=== PATIENT | female | born 1960 | race Caucasian/White ===

== ENCOUNTER → 2019-02-13 | Outpatient (CLI) | payer MEDICARE ==
[~2019-02-13] MED LIST: REGADENOSON 0.4 MG/5 ML SYRINGE ONE
== END | disposition home or self-care (01) ==
LOC: CFH 06:43
PROVIDERS: ATTEND Internal Medicine Cardiovascular Disease
DX: I48.91 Unspecified atrial fibrillation (principal); R94.31 Abnormal electrocardiogram [ECG] [EKG]; I10 Essential (primary) hypertension; Z82.49 Family history of ischemic heart disease and other diseases of the circulatory system
CPT/HCPCS: 78452; 93017; 93306; A9502; J2785

== ENCOUNTER 2019-11-18 20:09 | Inpatient (IN) | payer MEDICARE ==
[~2019-11-18] VITALS: Ht 162.6 cm; Wt 94.6 kg
[2019-11-18] MEDS ORDERED: PANTOPRAZOLE 80 MG in SODIUM CHLORIDE 0.9% 100 ML IV SCH (20:53)
[2019-11-18] MEDS ORDERED: PLEASE ENTER ALLERGIES MC SCH (21:30)
[2019-11-18] MEDS ORDERED: LORazepam 1MG TABLET PO PRN ×4 (22:00)
[2019-11-18] MEDS ORDERED: ONDANSETRON ODT 4 MG PO PRN (22:00)
[2019-11-18] MEDS ORDERED: hydrALAzine 20 MG/ML, 1ML IVPush PRN (22:00)
[2019-11-18] MEDS ORDERED: morphine SULFATE 10 MG/ML, 1ML IVPush PRN (22:00)
[2019-11-18] MEDS ORDERED: PROMETHAZINE 25 MG/ML, 1ML IM PRN (22:00)
[2019-11-18] MEDS ORDERED: LORazepam 2 MG/ML, 1ML IV PRN ×5 (22:00)
[2019-11-18] MEDS ORDERED: ONDANSETRON 2MG/ML, 2ML IVPush PRN (22:00)
[2019-11-18] MEDS ORDERED: LORazepam 0.5MG TABLET PO PRN (22:00)
[2019-11-18] MEDS ORDERED: ACETAMINOPHEN 325 MG TABLET PO PRN (22:00)
[2019-11-18 22:54] VITALS: BP 120/60
[2019-11-18 23:28] LABS: FREE T4 (FREE THYROXINE) 1.19 ng/dL (0.76-1.46)
[2019-11-18] MEDS: OXYcodone IR 5MG TABLET PO PRN (23:50)
[2019-11-19] MEDS ORDERED: LOSA100T14 PO (01:11)
[2019-11-19] MEDS ORDERED: OXYC5CAP2 PO (01:11)
[2019-11-19] MEDS ORDERED: TRAM50TA2 PO (01:11)
[2019-11-19] MEDS ORDERED: APIX5TAB PO (01:11)
[2019-11-19] MEDS ORDERED: AMLO-150 PO (01:11)
[2019-11-19] MEDS ORDERED: VENL75TA PO (01:11)
[2019-11-19] MEDS ORDERED: HYDR50TA99 PO (01:11)
[2019-11-19] MEDS ORDERED: CARV12.52 PO (01:50)
[2019-11-19 03:38] VITALS: BP 105/63
[2019-11-19 03:52] LABS: CHLORIDE 107 mmol/L (98-107)
[2019-11-19 04:01] LABS: ALANINE AMINOTRANSFERASE 29 U/L (12-78); ALBUMIN 2.9 g/dL (3.4-5.0); ALKALINE PHOSPHATASE 94 U/L (45-117); ANION GAP 7 mmol/L (5-15); BILIRUBIN,TOTAL 0.4 mg/dL (0.2-1.0); CALCIUM 9.6 mg/dL (8.5-10.1); CHOL/HDL RATIO 2.3; CHOLESTEROL, TOTAL 159 mg/dL (140-239); CREATININE 2.34 mg/dL (0.55-1.02); HDL CHOL % 44 % (28-40); HDL CHOLESTEROL (DIRECT) 70 mg/dL (40-60); LDL CHOLESTEROL,CALCULATED 75 mg/dL (54-169); LDL/HDL RATIO 1.1 (0.5-3.0); TOTAL PROTEIN 6.3 g/dL (6.4-8.2); TRIGLYCERIDES 68 mg/dL (50-200); VLDL CHOLESTEROL 14 mg/dL (0-25)
[2019-11-19] MEDS ORDERED: ACET-76 PO (05:58)
[2019-11-19] MEDS: OXYcodone IR 5MG TABLET PO PRN ×5 (06:35→21:50)
[2019-11-19 07:04] VITALS: BP 123/83
[2019-11-19] MEDS ORDERED: hydrOXyzine 50MG TABLET PO PRN (08:30)
[2019-11-19] MEDS ORDERED: PHARMACY MAY ADJ FOR RENAL FX MC PRN (08:30)
[2019-11-19] MEDS: VENLAFAXINE 75MG TABLET PO SCH (09:08)
[2019-11-19] MEDS: PANTOPRAZOLE 80 MG in SODIUM CHLORIDE 0.9% 100 ML IV SCH ×2 (09:08→20:57)
[2019-11-19] MEDS: POTASSIUM CHLORIDE 20 MEQ, MAGNESIUM SULFATE 2 GM, THIAMINE 200 MG, MVI ADULT 10 ML, FO... IV SCH ×3 (10:16→20:58)
[2019-11-19] MEDS: SODIUM CHLORIDE 0.9% 1,000 ML IV SCH ×2 (10:49)
[2019-11-19 12:27] VITALS: BP 104/66
[2019-11-19] MEDS ORDERED: PROPOFOL 10 MG/ML, 20ML ONE (13:46)
[2019-11-19] MEDS ORDERED: ONDANSETRON 2MG/ML, 2ML IV PRN (14:00)
[2019-11-19] MEDS ORDERED: ALBUTEROL/IPRATROPIUM 2.5MG/0.5MG, 3 ML NPPB PRN (14:00)
[2019-11-19] MEDS ORDERED: FENTANYL PF 100 MCG/2ML IV PRN (14:00)
[2019-11-19] MEDS ORDERED: LORazepam 2 MG/ML, 1ML IVPush PRN (14:00)
[2019-11-19] MEDS ORDERED: LABETALOL 5MG/ML, 20ML IV PRN (14:00)
[2019-11-19] MEDS ORDERED: OXYcodone 5 MG/5 ML ORAL.SOL UDC PO PRN (14:00)
[2019-11-19] MEDS ORDERED: hydrALAzine 20 MG/ML, 1ML IV PRN (14:00)
[2019-11-19] MEDS: SUCRALFATE 1 GM/10 ML UDC PO SCH ×2 (16:16→20:56)
[2019-11-19 19:00] VITALS: BP 118/80
[2019-11-20] VITALS: BP 108/72
[2019-11-20] MEDS: OXYcodone IR 5MG TABLET PO PRN ×5 (01:49→23:45)
[2019-11-20 05:45] LABS: BASOPHILS # (AUTO) 0.04 x10^3/uL (0-0.1); BASOPHILS % (AUTO) 1 % (0-1); EOSINOPHILS # (AUTO) 0.07 x10^3/uL (0-0.4); EOSINOPHILS % (AUTO) 2 % (1-7); LYMPHOCYTES % (AUTO) 36 % (22-44); MD NO; MEAN CORPUSCULAR HEMOGLOBIN 26.4 pg (27.0-34.8); MEAN CORPUSCULAR HGB CONC 32.1 g/dL (32.4-35.8); MEAN PLATELET VOLUME 7.2 fL (7.4-10.4); MONOCYTES # (AUTO) 0.69 x10^3/uL (0.2-0.8); MONOCYTES % (AUTO) 17 % (2-9); NEUTROPHILS # (AUTO) 1.84 x10^3/uL (1.8-6.8); NEUTROPHILS % (AUTO) 45 % (42-75); PLATELET COUNT 246 x10^3/uL (130-400); RED BLOOD COUNT 3.63 x10^6/uL (3.82-5.3); RED CELL DISTRIBUTION WIDTH 21.3 % (9.6-15.2)
[2019-11-20 05:52] LABS: ALANINE AMINOTRANSFERASE 28 U/L (12-78); ALBUMIN 2.7 g/dL (3.4-5.0); ANION GAP 5 mmol/L (5-15); CALCIUM 8.7 mg/dL (8.5-10.1); CHLORIDE 113 mmol/L (98-107); CREATININE 1.15 mg/dL (0.55-1.02)
[2019-11-20 05:54] LABS: ALKALINE PHOSPHATASE 87 U/L (45-117); BILIRUBIN,TOTAL 0.2 mg/dL (0.2-1.0); TOTAL PROTEIN 5.9 g/dL (6.4-8.2)
[2019-11-20] MEDS: POTASSIUM CHLORIDE 20 MEQ, MAGNESIUM SULFATE 2 GM, THIAMINE 200 MG, MVI ADULT 10 ML, FO... IV SCH (06:48)
[2019-11-20] MEDS: SUCRALFATE 1 GM/10 ML UDC PO SCH ×4 (07:41→21:26)
[2019-11-20 07:53] LABS: INTERNATIONAL NORMALIZED RATIO 0.98 (0.93-1.1); PROTHROMBIN TIME 10.3 Seconds (9.6-11.5)
[2019-11-20 08:10] VITALS: BP 137/81
[2019-11-20] MEDS: PANTOPRAZOLE 80 MG in SODIUM CHLORIDE 0.9% 100 ML IV SCH (08:26)
[2019-11-20] MEDS: VENLAFAXINE 75MG TABLET PO SCH (08:26)
[2019-11-20] MEDS: PANTOPRAZOLE 40MG TABLET PO SCH ×2 (11:16→21:26)
[2019-11-20 14:00] VITALS: BP 124/88
[2019-11-20 15:45] LABS: MICROSCOPIC INDICATED
[2019-11-20] MEDS ORDERED: CHLORDIAZEPOXIDE 25 MG CAPSULE PO ONE (18:00)
[2019-11-20 19:46] VITALS: BP 124/84
[2019-11-20] MEDS ORDERED: POTASSIUM CHLORIDE 20 MEQ, MAGNESIUM SULFATE 2 GM, THIAMINE 200 MG, MVI ADULT 10 ML, FO... IV SCH (22:30)
[2019-11-21 01:46] VITALS: BP 125/85
[2019-11-21] MEDS: OXYcodone IR 5MG TABLET PO PRN ×4 (04:08→21:32)
[2019-11-21 05:47] LABS: BASOPHILS # (AUTO) 0.02 x10^3/uL (0-0.1); BASOPHILS % (AUTO) 0 % (0-1); EOSINOPHILS # (AUTO) 0.07 x10^3/uL (0-0.4); EOSINOPHILS % (AUTO) 2 % (1-7); LYMPHOCYTES # (AUTO) 1.58 x10^3/uL (1-3.4); LYMPHOCYTES % (AUTO) 37 % (22-44); MD NO; MEAN CORPUSCULAR HEMOGLOBIN 26.3 pg (27.0-34.8); MEAN CORPUSCULAR HGB CONC 31.9 g/dL (32.4-35.8); MEAN CORPUSCULAR VOLUME 82.4 fL (80-100); MEAN PLATELET VOLUME 7.4 fL (7.4-10.4); MONOCYTES # (AUTO) 0.82 x10^3/uL (0.2-0.8); MONOCYTES % (AUTO) 19 % (2-9); NEUTROPHILS # (AUTO) 1.79 x10^3/uL (1.8-6.8); NEUTROPHILS % (AUTO) 42 % (42-75); PLATELET COUNT 256 x10^3/uL (130-400); RED BLOOD COUNT 3.53 x10^6/uL (3.82-5.3); RED CELL DISTRIBUTION WIDTH 20.9 % (9.6-15.2)
[2019-11-21 06:00] LABS: ANION GAP 4 mmol/L (5-15); CALCIUM 9.1 mg/dL (8.5-10.1); CHLORIDE 115 mmol/L (98-107)
[2019-11-21 06:01] LABS: ALANINE AMINOTRANSFERASE 27 U/L (12-78); ALBUMIN 2.7 g/dL (3.4-5.0)
[2019-11-21 06:03] LABS: ALKALINE PHOSPHATASE 83 U/L (45-117); BILIRUBIN,TOTAL 0.3 mg/dL (0.2-1.0); TOTAL PROTEIN 6.1 g/dL (6.4-8.2)
[2019-11-21 07:10] VITALS: BP 109/75
[2019-11-21] MEDS: VENLAFAXINE 75MG TABLET PO SCH (07:51)
[2019-11-21] MEDS: SUCRALFATE 1 GM/10 ML UDC PO SCH ×4 (07:51→21:32)
[2019-11-21] MEDS: PANTOPRAZOLE 40MG TABLET PO SCH ×2 (07:52→21:32)
[2019-11-21 12:57] VITALS: BP 129/86
[2019-11-21] MEDS ORDERED: FOLI-17 PO (15:18)
[2019-11-21] MEDS ORDERED: PANT40TA5 PO (15:18)
[2019-11-21] MEDS ORDERED: SUCR1ORA5 PO (15:18)
[2019-11-21] MEDS ORDERED: MULT1TAB60 PO (15:18)
[2019-11-21] MEDS ORDERED: THIA100T67 PO (15:18)
[2019-11-21 19:10] VITALS: BP 118/71
[2019-11-22 00:43] VITALS: BP 146/90
[2019-11-22] MEDS: OXYcodone IR 5MG TABLET PO PRN ×4 (01:49→19:51)
[2019-11-22 07:36] VITALS: BP 140/87
[2019-11-22] MEDS: VENLAFAXINE 75MG TABLET PO SCH (07:57)
[2019-11-22] MEDS: MULTIVITAMIN 1 TABLET PO SCH (07:57)
[2019-11-22] MEDS: THIAMINE 100MG TABLET PO SCH (07:57)
[2019-11-22] MEDS: FOLIC ACID 1 MG TABLET PO SCH (07:57)
[2019-11-22] MEDS: SUCRALFATE 1 GM/10 ML UDC PO SCH ×4 (07:57→19:50)
[2019-11-22] MEDS: PANTOPRAZOLE 40MG TABLET PO SCH ×2 (07:57→19:51)
[2019-11-22 12:20] VITALS: BP 150/97
[2019-11-22 18:58] VITALS: BP 144/93
[2019-11-23 00:26] VITALS: BP 150/97
[2019-11-23] MEDS: OXYcodone IR 5MG TABLET PO PRN ×6 (00:51→22:55)
[2019-11-23] MEDS: DOCUSATE 100 MG CAPSULE PO PRN ×2 (04:54→17:15)
[2019-11-23 07:41] VITALS: BP 166/109
[2019-11-23] MEDS: PANTOPRAZOLE 40MG TABLET PO SCH ×2 (08:54→20:02)
[2019-11-23] MEDS: SUCRALFATE 1 GM/10 ML UDC PO SCH ×4 (08:54→20:02)
[2019-11-23] MEDS: MULTIVITAMIN 1 TABLET PO SCH (08:54)
[2019-11-23] MEDS: FOLIC ACID 1 MG TABLET PO SCH (08:55)
[2019-11-23] MEDS: THIAMINE 100MG TABLET PO SCH (08:55)
[2019-11-23] MEDS: VENLAFAXINE 75MG TABLET PO SCH (08:55)
[2019-11-23 13:49] VITALS: BP 142/81
[2019-11-23] MEDS: CARVEDILOL 12.5 MG TABLET PO SCH (18:39)
[2019-11-23 18:52] VITALS: BP 147/92
[2019-11-24 00:19] VITALS: BP 141/88
[2019-11-24] MEDS: OXYcodone IR 5MG TABLET PO PRN ×4 (02:55→16:17)
[2019-11-24] MEDS: CARVEDILOL 12.5 MG TABLET PO SCH ×2 (05:38→17:00)
[2019-11-24] MEDS: PANTOPRAZOLE 40MG TABLET PO SCH (08:06)
[2019-11-24] MEDS: VENLAFAXINE 75MG TABLET PO SCH (08:06)
[2019-11-24] MEDS: FOLIC ACID 1 MG TABLET PO SCH (08:06)
[2019-11-24] MEDS: SUCRALFATE 1 GM/10 ML UDC PO SCH ×3 (08:06→16:16)
[2019-11-24] MEDS: THIAMINE 100MG TABLET PO SCH (08:06)
[2019-11-24] MEDS: MULTIVITAMIN 1 TABLET PO SCH (08:06)
[2019-11-24 08:16] VITALS: BP 153/99
[2019-11-24 13:49] VITALS: BP 138/82
[2019-11-24] MEDS ORDERED: CARV12.52 PO (16:49)
[2019-11-25 02:10] VITALS: BP 123/68
== END 2019-11-24 18:34 | DRG 377 ==
LOC: ED 21:18 → EDIP 21:33 → 4WST 22:50
PROVIDERS: ADMIT Internal Medicine; ATTEND Family Medicine
PROC: 0DB68ZX Excision of Stomach, Via Natural or Artificial Opening Endoscopic, Diagnostic (ICD-10-PCS; principal; 2019-11-19 12:45)
DX: K25.4 Chronic or unspecified gastric ulcer with hemorrhage (principal); N17.0 Acute kidney failure with tubular necrosis; K85.80 Other acute pancreatitis without necrosis or infection; K86.0 Alcohol-induced chronic pancreatitis; D68.59 Other primary thrombophilia; F10.239 Alcohol dependence with withdrawal, unspecified; F10.288 Alcohol dependence with other alcohol-induced disorder; I48.20 Chronic atrial fibrillation, unspecified; K21.0 Gastro-esophageal reflux disease with esophagitis; F32.9 Major depressive disorder, single episode, unspecified; D64.9 Anemia, unspecified; Z96.651 Presence of right artificial knee joint; E86.0 Dehydration; K70.10 Alcoholic hepatitis without ascites; K29.81 Duodenitis with bleeding; I10 Essential (primary) hypertension; Z68.32 Body mass index [BMI] 32.0-32.9, adult; Z79.01 Long term (current) use of anticoagulants; Z87.11 Personal history of peptic ulcer disease; Z79.899 Other long term (current) drug therapy; Z71.41 Alcohol abuse counseling and surveillance of alcoholic
CPT/HCPCS: 36415; 80053; 80061; 81001; 82436; 82570; 82728; 83036; 83540; 83550; 83690; 83735; 84100; 84133; 84156; 84300; 84439; 84443; 85014; 85018; 85025; 85610; 87086; 88305; 88342; 99285; G0378; J2704; J3411; J3475; J3480; J7042; C9113; J7030

== ENCOUNTER 2020-03-10 16:19 | Observation (INO) | payer MEDICARE ==
[~2020-03-10] VITALS: Ht 162.6 cm; Wt 91.2 kg
[~2020-03-10 16:19] MED LIST changes: +ACET-76 PO; +AMLO-150 PO; +APIX5TAB PO; +CARV12.52 PO; +FOLI-17 PO; +HYDR50TA99 PO; +LOSA100T14 PO; +MULT-449 PO; +OXYC5CAP2 PO; +PANT40TA5 PO; -REGADENOSON 0.4 MG/5 ML SYRINGE ONE; +SUCR1ORA5 PO; +THIA100T67 PO; +TRAM50TA2 PO; +VENL75TA PO
[2020-03-10 16:47] LABS: BASOPHILS # (AUTO) 0.03 x10^3/uL (0-0.1); BASOPHILS % (AUTO) 0 % (0-1); EOSINOPHILS # (AUTO) 0.04 x10^3/uL (0-0.4); EOSINOPHILS % (AUTO) 1 % (1-7); LYMPHOCYTES # (AUTO) 2.04 x10^3/uL (1-3.4); LYMPHOCYTES % (AUTO) 26 % (22-44); MD NO; MEAN CORPUSCULAR HEMOGLOBIN 27.9 pg (27.0-34.8); MEAN CORPUSCULAR HGB CONC 33.8 g/dL (32.4-35.8); MEAN CORPUSCULAR VOLUME 82.6 fL (80-100); MEAN PLATELET VOLUME 7.9 fL (7.4-10.4); MONOCYTES # (AUTO) 0.52 x10^3/uL (0.2-0.8); MONOCYTES % (AUTO) 7 % (2-9); NEUTROPHILS % (AUTO) 67 % (42-75); PLATELET COUNT 245 x10^3/uL (130-400); RED BLOOD COUNT 3.09 x10^6/uL (3.82-5.3); RED CELL DISTRIBUTION WIDTH 13.4 % (9.6-15.2)
[2020-03-10 16:57] LABS: ALANINE AMINOTRANSFERASE 15 U/L (12-78); ALBUMIN 2.7 g/dL (3.4-5.0); ANION GAP 6 mmol/L (5-15); CALCIUM 10.5 mg/dL (8.5-10.1); CHLORIDE 105 mmol/L (98-107); CREATININE 1.09 mg/dL (0.55-1.02)
[2020-03-10 16:59] LABS: ALKALINE PHOSPHATASE 60 U/L (45-117); BILIRUBIN,TOTAL 0.2 mg/dL (0.2-1.0); TOTAL PROTEIN 6.5 g/dL (6.4-8.2)
--- NOTE | 2020-03-10 19:32 | NUR ---
THIS IS A 59 YO FEMALE COMING IN FOR "BOTH DARK AND RED STOOLS FOR THE PAST DAY". PATIENT HAS HX OF PEPTIC ULCERS AND HAS BEEN TAKING ALEVE FOR LOW BACK PAIN. PATIENT STATES "I HAVEN'T BEEN DRINKING, I'M 110 DAYS SOBER". PATIENT ALSO C/O FEELING WEAK AND LIGHTHEADED, + NAUSEA AND "STOMACH ACHE", NO VOMITING OR DIARRHEA. A&OX4, VSS, NAD OR PAIN AT THIS TIME, ALL MONITORING IN PLACE, PATIENT IN NSR AT THIS TIME, HX OF AFIB. CALL LIGHT IN REACH.
[2020-03-10] MEDS ORDERED: AMLO10TA8 PO (19:40)
[2020-03-10] MEDS ORDERED: LOSA1TAB19 PO (19:41)
[2020-03-10] MEDS ORDERED: OXYC-307 PO (19:42)
--- NOTE | 2020-03-10 20:30 | NUR ---
PATIENT RESTING ON GURNEY, RESPIRATIONS EVEN AND UNLABORED. VSS, ALL MONITORING IN PLACE. WAITING FOR ERP EVAL
--- NOTE | 2020-03-10 20:58 | NUR ---
PATIENT C/O PAIN AT THIS TIME, WAITING FOR ERP TO SIGN UP AND EVAL PATIENT
--- NOTE | 2020-03-10 21:15 | NUR ---
ERP TO ROOM
[2020-03-10] MEDS ORDERED: PANTOPRAZOLE 80 MG in SODIUM CHLORIDE 0.9% 50 ML IV ONE (21:30)
[2020-03-10] MEDS ORDERED: ONDANSETRON 2MG/ML, 2ML IVPush ONE (21:30)
[2020-03-10] MEDS ORDERED: MORPHINE SULFATE 4 MG/ML, 1ML IVPush PRN (21:30)
[2020-03-10] MEDS ORDERED: MORPHINE SULFATE 4 MG/ML, 1ML ONE (21:35)
[2020-03-10] MEDS ORDERED: ONDANSETRON 2MG/ML, 2ML ONE (21:35)
--- NOTE | 2020-03-10 21:58 | NUR ---
PIV PLACED, PATIENT MEDICATED PER EMAR. IV PROTONIX STARTED
[2020-03-10] MEDS ORDERED: PANTOPRAZOLE 80 MG in SODIUM CHLORIDE 0.9% 100 ML IV SCH (22:00)
--- NOTE | 2020-03-10 22:11 | NUR ---
THROUGHPUT RN: CALLED [facility] D/T [facility], PT TO STAY AT [facility] FOR ADMISSION PER [employer] SUPERVISOR AT [facility].
[2020-03-10] MEDS ORDERED: HYDROmorphone 1 MG/ML, 1ML INJ ONE (22:33)
[2020-03-10] MEDS: HYDROmorphone 2 MG/ML, 1ML IVPush PRN (22:47)
--- NOTE | 2020-03-10 22:48 | NUR ---
PATIENT MEDICATED PER EMAR, TOLERATED WELL. 0.5MG ADMINISTERED PER MUKUND HOLLIDAY
--- NOTE | 2020-03-10 22:56 | NUR ---
REPORT GIVEN TO JERI JAVED. PLAN OF CARE DISCUSSED. JERI JAVED AWARE PROTONIX INFUSING AT TIME OF TRANSFER
[2020-03-10] MEDS ORDERED: ONDANSETRON 2MG/ML, 2ML IVPush PRN (23:00)
[2020-03-10] MEDS: SODIUM CHLORIDE FLUSH 10ML SYR IVF SCH (23:00)
[2020-03-10] MEDS ORDERED: OXYcodone/APAP 10/325MG TABLET PO PRN (23:00)
[2020-03-10] MEDS ORDERED: BISACODYL 10 MG SUPP PR PRN (23:00)
[2020-03-10 23:14] VITALS: BP 107/75
[2020-03-11] VITALS (17 sets, daily range): BP systolic 91–121; BP diastolic 37–86
[2020-03-11] MEDS: HYDROmorphone 2 MG/ML, 1ML IVPush PRN ×3 (01:57→12:01)
[2020-03-11 05:54] LABS: ANION GAP 6 mmol/L (5-15); CALCIUM 9.7 mg/dL (8.5-10.1); CHLORIDE 106 mmol/L (98-107); CREATININE 1.21 mg/dL (0.55-1.02)
[2020-03-11] MEDS ORDERED: CARVEDILOL 12.5 MG TABLET PO SCH (06:00)
[2020-03-11 06:09] LABS: BASOPHILS # (AUTO) 0.05 x10^3/uL (0-0.1); BASOPHILS % (AUTO) 0 % (0-1); EOSINOPHILS # (AUTO) 0.16 x10^3/uL (0-0.4); EOSINOPHILS % (AUTO) 1 % (1-7); LYMPHOCYTES # (AUTO) 2.95 x10^3/uL (1-3.4); LYMPHOCYTES % (AUTO) 26 % (22-44); MD NO; MEAN CORPUSCULAR HEMOGLOBIN 27.9 pg (27.0-34.8); MEAN CORPUSCULAR HGB CONC 33.2 g/dL (32.4-35.8); MEAN CORPUSCULAR VOLUME 83.9 fL (80-100); MEAN PLATELET VOLUME 8.3 fL (7.4-10.4); MONOCYTES # (AUTO) 1.37 x10^3/uL (0.2-0.8); MONOCYTES % (AUTO) 12 % (2-9); NEUTROPHILS # (AUTO) 6.96 x10^3/uL (1.8-6.8); NEUTROPHILS % (AUTO) 61 % (42-75); PLATELET COUNT 234 x10^3/uL (130-400); RED BLOOD COUNT 2.77 x10^6/uL (3.82-5.3)
[2020-03-11] MEDS: FOLIC ACID 1 MG TABLET PO SCH (08:21)
[2020-03-11] MEDS: MULTIVITAMIN 1 TABLET PO SCH (08:22)
[2020-03-11] MEDS: THIAMINE 100MG TABLET PO SCH (08:22)
[2020-03-11] MEDS ORDERED: HYDROCHLOROTHIAZIDE 12.5 MG CAPSULE PO SCH (09:00)
[2020-03-11] MEDS: SODIUM CHLORIDE FLUSH 10ML SYR IVF SCH ×2 (09:00→21:00)
[2020-03-11] MEDS ORDERED: LOSARTAN 50MG TABLET PO SCH (09:00)
[2020-03-11] MEDS ORDERED: AMLODIPINE 10 MG TAB PO SCH (09:00)
[2020-03-11] MEDS ORDERED: CHLORHEXIDINE 15 ML UDC ONE (09:59)
[2020-03-11] MEDS ORDERED: CHLORHEXIDINE 15 ML UDC MM ONE (10:00)
[2020-03-11] MEDS ORDERED: SUCCINYLCHOLINE 20 MG/ML, 10ML ONE (10:43)
[2020-03-11] MEDS ORDERED: PROPOFOL 10 MG/ML, 20ML ONE (10:43)
[2020-03-11] MEDS ORDERED: FENTANYL PF 100 MCG/2ML ONE (11:23)
[2020-03-11] MEDS: FENTANYL PF 100 MCG/2ML IV PRN ×2 (11:27→11:35)
[2020-03-11] MEDS ORDERED: ONDANSETRON 2MG/ML, 2ML IV PRN (11:30)
[2020-03-11] MEDS ORDERED: ACETAMINOPHEN 325 MG TABLET PO PRN (11:30)
[2020-03-11] MEDS: SUCRALFATE 1 GM/10 ML UDC PO SCH ×3 (11:30→22:00)
[2020-03-11] MEDS: OMEPRAZOLE 20 MG CAPSULE.DR PO SCH (11:45)
[2020-03-11] MEDS: PANTOPRAZOLE 80 MG in SODIUM CHLORIDE 0.9% 100 ML IV SCH ×2 (12:01→23:55)
[2020-03-11 13:01] LABS: INTERNATIONAL NORMALIZED RATIO 1.05 (0.93-1.1); PROTHROMBIN TIME 11.1 Seconds (9.6-11.5)
[2020-03-11] MEDS: CARVEDILOL 12.5 MG TABLET PO SCH (16:26)
[2020-03-11] MEDS ORDERED: SODIUM CHLORIDE 0.9% 1,000 ML IV SCH (16:30)
[2020-03-11] MEDS ORDERED: POTASSIUM CHLORIDE 20 MEQ TAB.ER.PRT PO ONE (16:30)
[2020-03-11] MEDS: OXYcodone/APAP 10/325MG TABLET PO PRN ×2 (18:03→21:59)
[2020-03-12 01:37] VITALS: BP 117/80
[2020-03-12] MEDS: OXYcodone/APAP 10/325MG TABLET PO PRN ×4 (02:10→13:53)
[2020-03-12 04:54] VITALS: BP 99/65
[2020-03-12] MEDS: OMEPRAZOLE 20 MG CAPSULE.DR PO SCH (04:56)
[2020-03-12] MEDS: CARVEDILOL 12.5 MG TABLET PO SCH (04:57)
[2020-03-12 06:33] VITALS: BP 105/72
[2020-03-12 06:50] LABS: BASOPHILS # (AUTO) 0.04 x10^3/uL (0-0.1); BASOPHILS % (AUTO) 1 % (0-1); EOSINOPHILS # (AUTO) 0.25 x10^3/uL (0-0.4); EOSINOPHILS % (AUTO) 4 % (1-7); LYMPHOCYTES # (AUTO) 3.04 x10^3/uL (1-3.4); LYMPHOCYTES % (AUTO) 44 % (22-44); MD NO; MEAN CORPUSCULAR HGB CONC 33.3 g/dL (32.4-35.8); MEAN PLATELET VOLUME 8.2 fL (7.4-10.4); MONOCYTES # (AUTO) 0.62 x10^3/uL (0.2-0.8); MONOCYTES % (AUTO) 9 % (2-9); NEUTROPHILS # (AUTO) 3.01 x10^3/uL (1.8-6.8); NEUTROPHILS % (AUTO) 43 % (42-75); PLATELET COUNT 187 x10^3/uL (130-400); RED BLOOD COUNT 3.02 x10^6/uL (3.82-5.3); RED CELL DISTRIBUTION WIDTH 14.3 % (9.6-15.2)
[2020-03-12 06:57] LABS: ANION GAP 4 mmol/L (5-15); CALCIUM 8.5 mg/dL (8.5-10.1); CHLORIDE 105 mmol/L (98-107)
[2020-03-12 06:58] LABS: CREATININE 1.12 mg/dL (0.55-1.02)
[2020-03-12] MEDS ORDERED: FERROUS SULFATE 325 MG TABLET PO SCH (08:00)
[2020-03-12] MEDS ORDERED: LACTOBACILLUS CHEW TABLET PO SCH (09:00)
[2020-03-12] MEDS: THIAMINE 100MG TABLET PO SCH (09:00)
[2020-03-12] MEDS: SODIUM CHLORIDE FLUSH 10ML SYR IVF SCH (09:00)
[2020-03-12] MEDS: FOLIC ACID 1 MG TABLET PO SCH (09:01)
[2020-03-12] MEDS: MULTIVITAMIN 1 TABLET PO SCH (09:01)
[2020-03-12] MEDS: SUCRALFATE 1 GM/10 ML UDC PO SCH ×2 (09:01→11:55)
[2020-03-12] MEDS: PANTOPRAZOLE 80 MG in SODIUM CHLORIDE 0.9% 100 ML IV SCH (09:49)
[2020-03-12] MEDS ORDERED: SUCR1ORA5 PO (10:13)
[2020-03-12] MEDS ORDERED: OMEP-110 PO (10:13)
[2020-03-12] MEDS ORDERED: FERR-51 PO (10:13)
[2020-03-12] MEDS ORDERED: ACID1TAB7 PO (10:13)
== END 2020-03-12 14:01 | disposition home or self-care (01) ==
LOC: ED 19:45 → EDIP 22:06 → INTOOBSV 22:06 → 3N 23:10
PROVIDERS: ADMIT Family Medicine; ATTEND Internal Medicine
DX: K25.4 Chronic or unspecified gastric ulcer with hemorrhage (principal); T39.395A Adverse effect of other nonsteroidal anti-inflammatory drugs [NSAID], initial encounter; N17.0 Acute kidney failure with tubular necrosis; D68.69 Other thrombophilia; I48.20 Chronic atrial fibrillation, unspecified; D62 Acute posthemorrhagic anemia; F10.20 Alcohol dependence, uncomplicated; F32.9 Major depressive disorder, single episode, unspecified; M54.9 Dorsalgia, unspecified; G89.29 Other chronic pain; E83.51 Hypocalcemia; I10 Essential (primary) hypertension; E66.9 Obesity, unspecified; K59.00 Constipation, unspecified; F10.21 Alcohol dependence, in remission; E87.6 Hypokalemia; G47.00 Insomnia, unspecified; Z79.01 Long term (current) use of anticoagulants; Z79.899 Other long term (current) drug therapy
CPT/HCPCS: 36415; 36430; 43235; 80048; 80053; 85014; 85018; 85025; 85610; 86850; 86900; 86923; 96365; 96366; 96375; 96376; 99291; C9113; G0378; J0330; J1170; J2270; J2405; J2704; J3010; J7030; P9016